=== PATIENT | male | born 1965 | race Two or more races ===

== ENCOUNTER 2024-11-19 03:53 | Emergency (ER) | payer OTHER ==
[~2024-11-19] VITALS: Ht 165.1 cm; Wt 58.5 kg
[2024-11-19] MEDS ORDERED: BIKTARVY 50-201 EACH PO (04:29)
[2024-11-19] MEDS ORDERED: XANAX0.25 MG PO (04:29)
[2024-11-19] MEDS ORDERED: AMBIEN5 MG PO (04:29)
[2024-11-19] MEDS ORDERED: WELLBUTRIN XL300 MG (04:29)
[2024-11-19] MEDS ORDERED: CLINDAMYCIN PHOSPHATE 150 MG/ML (600mg) IM STA (05:11)
[2024-11-19] MEDS ORDERED: hydrOXYzine PAMOATE 50 MG CAPSULE PO STA (05:12)
[2024-11-19] MEDS ORDERED: KETOROLAC TROMETHAMINE 30 MG VIAL ONE (05:28)
[2024-11-19] MEDS ORDERED: KETOROLAC TROMETHAMINE 30 MG VIAL IM ONE (05:30)
== END 2024-11-19 05:24 | disposition home or self-care (01) ==
LOC: ER 03:56 → EDBD 03:56 → ER 04:20
DX: L03.113 Cellulitis of right upper limb (principal)
CPT/HCPCS: 96372; 99282; J1885; J3490

== ENCOUNTER 2025-04-07 13:43 | Outpatient (CLI) | payer OTHER ==
[~2025-04-07 13:43] MED LIST: AMBIEN5 MG PO; BIKTARVY 50-201 EACH PO; WELLBUTRIN XL300 MG; XANAX0.25 MG PO
== END 2025-04-07 13:48 | disposition home or self-care (01) ==
LOC: RAD 13:43
DX: S99.922S Unspecified injury of left foot, sequela (principal); X58.XXXS Exposure to other specified factors, sequela